=== PATIENT | male | born 1935 | race Two or more races ===

== ENCOUNTER 2024-06-01 20:10 | Inpatient (IN) | payer MEDICARE, OTHER ==
[~2024-06-01] VITALS: Ht 167.6 cm; Wt 57.4 kg
[2024-06-01] MEDS ORDERED: ACETAMINOPHEN 325 MG TABLET PO PRN (21:30)
[2024-06-01] MEDS ORDERED: TEMAZEPAM 7.5 MG CAPSULE PO PRN (21:30)
[2024-06-01] MEDS ORDERED: HYDROCODONE/APAP 5-325MG TABLET PO PRN (21:30)
[2024-06-01 21:53] VITALS: BP 150/52; TEMP 97.5; O2SAT 96
[2024-06-01] MEDS ORDERED: SIMV-46 PO (22:05)
[2024-06-01] MEDS ORDERED: BENZ150C4 PO (22:05)
[2024-06-01] MEDS ORDERED: HYDR-894 PO (22:05)
[2024-06-01] MEDS ORDERED: GABA300C PO (22:05)
[2024-06-01] MEDS ORDERED: TAMS-3 PO (22:05)
[2024-06-01] MEDS ORDERED: SITA100T PO (22:05)
[2024-06-01] MEDS ORDERED: ASPI81TA31 PO (22:41)
[2024-06-01] MEDS ORDERED: ACET100V4 NEB (22:41)
[2024-06-01] MEDS ORDERED: ACET325C7 PO (22:41)
[2024-06-01] MEDS ORDERED: ATOR10TA PO (22:41)
[2024-06-01] MEDS ORDERED: CEFT1FRO2 IV (22:41)
[2024-06-01] MEDS ORDERED: INSU100V28 SQ (23:38)
[2024-06-01] MEDS ORDERED: [UNRECOGNIZED DRUG - CODE] SQ (23:38)
[2024-06-01] MEDS ORDERED: METO50TA16 PO (23:38)
[2024-06-01] MEDS ORDERED: HYDR-4077 PO (23:38)
[2024-06-01] MEDS ORDERED: HYDR-4209 PO (23:38)
[2024-06-01] MEDS ORDERED: PRED20TA PO (23:38)
[2024-06-01] MEDS ORDERED: BENZ1LOZ58 MM ×2 (23:38)
[2024-06-01] MEDS ORDERED: PANT40TA49 PO (23:38)
[2024-06-02] MEDS ORDERED: Medication Not On Formulary EA (Acetaminophen (Tylenol) 2 CAP) PO PRN (00:30)
[2024-06-02 06:00] VITALS: BP 171/68; TEMP 97.8; O2SAT 97
[2024-06-02] MEDS: TAMSULOSIN HCL 0.4 MG CAP.SR.24H PO SCH ×2 (08:42→22:02)
[2024-06-02] MEDS: GABAPENTIN 300 MG CAPSULE PO SCH ×2 (08:42→22:58)
[2024-06-02] MEDS: predniSONE 20 MG TABLET PO SCH (08:42)
[2024-06-02] MEDS: BENZONATATE 100 MG CAPSULE PO SCH (08:42)
[2024-06-02] MEDS: PANTOPRAZOLE SODIUM 40 MG TABLET.DR PO SCH (08:42)
[2024-06-02] MEDS: METOPROLOL TARTRATE 50 MG TABLET PO SCH ×2 (08:49→21:00)
[2024-06-02] MEDS ORDERED: METOPROLOL TARTRATE 50 MG TABLET PO SCH (09:00)
[2024-06-02] MEDS ORDERED: hydrALAZINE HCL 25 MG TABLET PO SCH (09:00)
[2024-06-02] MEDS ORDERED: hydrALAZINE HCL 50 MG TABLET PO SCH (09:00)
[2024-06-02] MEDS: LINAGLIPTIN 5 MG TABLET PO SCH (14:09)
[2024-06-02] MEDS: BLOOD SUGAR DIAGNOSTIC 1 EACH STRIP VI SCH (14:10)
[2024-06-02] MEDS: INSULIN REGULAR, HUMAN 1000 UNIT/10 ML VIAL SQ PRN (14:23)
[2024-06-02] MEDS: hydrALAZINE HCL 50 MG TABLET PO SCH (14:32)
[2024-06-02] MEDS ORDERED: BENZONATATE 100 MG CAPSULE PO PRN (16:45)
[2024-06-02] MEDS ORDERED: BENZ-13 PO (16:49)
[2024-06-02] MEDS ORDERED: ATOR20TA PO (16:49)
[2024-06-02] MEDS ORDERED: SIMVASTATIN 20 MG TABLET PO SCH (18:00)
[2024-06-02] MEDS ORDERED: ATORVASTATIN 10 MG TABLET PO SCH (18:00)
[2024-06-02 18:23] VITALS: BP 162/62; TEMP 98.1; O2SAT 98
[2024-06-02 20:00] VITALS: BP 102/54; TEMP 97.9; O2SAT 97
[2024-06-02] MEDS ORDERED: ATORVASTATIN 20 MG TABLET PO SCH (21:00)
[2024-06-02] MEDS: DOXYCYCLINE HYCLATE 100 MG TABLET PO SCH (22:01)
[2024-06-02] MEDS: ATORVASTATIN 10 MG TABLET PO SCH (22:02)
[2024-06-02] MEDS ORDERED: GABAPENTIN 300 MG CAPSULE ONE (22:46)
[2024-06-02] MEDS ORDERED: HEPARIN SODIUM,PORCINE 5,000 UNITS/ML VIAL ONE (22:47)
[2024-06-02] MEDS ORDERED: methylPREDNISolone 4 MG TABLET ONE (22:47)
[2024-06-02] MEDS: HEPARIN SODIUM,PORCINE 5,000 UNITS/ML VIAL SQ SCH (23:01)
[2024-06-02] MEDS: ACETYLCYSTEINE 10% 4ML VIAL IH SCH (23:30)
[2024-06-03 06:00] VITALS: BP 151/64; TEMP 98.1; O2SAT 97
[2024-06-03 08:01] LABS: BASOPHILS % (AUTO) 0.1 % (0.0-2.0); EOSINOPHILS % (AUTO) 0.2 % (0.0-7.0); HEMATOCRIT 22.3 % (36.7-47.1); HEMOGLOBIN 7.6 g/dL (12.5-16.3); LYMPHOCYTES # (AUTO) 0.7 K/uL (0.8-4.8); LYMPHOCYTES % (AUTO) 9.5 % (20.5-51.5); MEAN CORPUSCULAR HEMOGLOBIN 28.9 uug (23.8-33.4); MEAN CORPUSCULAR HGB CONC 34 g/dL (32.5-36.3); MEAN CORPUSCULAR VOLUME 84.5 fL (73.0-96.2); MONOCYTES # (AUTO) 0.9 K/uL (0.1-1.30); MONOCYTES % (AUTO) 12.2 % (0.0-11.0); NEUTROPHILS # (AUTO) 5.9 K/uL (1.8-8.9); PLATELET COUNT (AUTO) 148 K/uL (152-348); RED BLOOD CELL COUNT(AUTO) 2.64 MIL/uL (4.06-5.63); RED CELL DISTRIBUTION WIDTH 13.7 % (12.1-16.2); WHITE BLOOD COUNT (AUTO) 7.6 K/uL (3.6-10.2)
[2024-06-03 08:09] LABS: DIFFERENTIAL COMMENT 1
[2024-06-03 08:15] LABS: ALANINE AMINOTRANSFERASE 16 U/L (16-63); ALBUMIN 2.2 g/dL (3.4-5.0); ALKALINE PHOSPHATASE 66 U/L (50-136); ASPARTATE AMINOTRANSFERASE < 5 U/L (15-37); BILIRUBIN,TOTAL 0.3 mg/dL (0.2-1.0); CALCIUM 7.8 mg/dL (8.5-10.1); CARBON DIOXIDE 26 mmol/L (21-32); CHLORIDE 106 mmol/L (98-107); CHOLESTEROL 137 mg/dL (<200); CREATININE 2.5 mg/dL (0.6-1.3); GLUCOSE 127 mg/dL (74-106); HDL CHOLESTEROL 57 mg/dL (40-60); MAGNESIUM 2.2 mg/dL (1.8-2.4); PHOSPHOROUS 4.6 mg/dL (2.5-4.9); POTASSIUM 4.2 mmol/L (3.5-5.1); SODIUM SERUM 138 mmol/L (136-145); TOTAL PROTEIN, SERUM 5.4 g/dL (6.4-8.2); TRIGLYCERIDES 52 MG/DL (30-150)
[2024-06-03] MEDS: predniSONE 10 MG TABLET PO SCH (08:45)
[2024-06-03] MEDS: ASPIRIN EC 81 MG TABLET.DR PO SCH (08:45)
[2024-06-03 09:16] LABS: THYROID STIMULATING HORMONE 1.087 mIU/mL (0.358-3.740)
[2024-06-03 09:37] LABS: UREA NITROGEN, BLOOD 92 mg/dL (7-18)
[2024-06-03] MEDS ORDERED: ALBUTEROL SULFATE 8 GM HFA.AER.AD IH PRN (10:00)
[2024-06-03 12:36] LABS: BAND % (MANUAL) 3 % (0-10); LYMPHOCYTES % (MANUAL) 4 % (20-40); METAMYELOCYTES % 1 % (0-1); MONOCYTES % (MANUAL) 7 % (2-10); MYELOCYTES % 1 % (0-0); NEUTROPHILS % (MANUAL) 84 % (42-75); PLATELET ESTIMATE DECREASED
[2024-06-03] MEDS ORDERED: ALBUTEROL SULFATE 2.5 MG/3 ML NEBU NEB PRN (14:00)
[2024-06-03 16:15] VITALS: BP 127/51; TEMP 97.6; O2SAT 95
[2024-06-03 23:19] VITALS: BP 141/52; TEMP 97.4; O2SAT 96
[2024-06-04 07:16] VITALS: BP 138/49; TEMP 99; O2SAT 95
[2024-06-04 16:15] VITALS: BP 142/60; TEMP 97.6; O2SAT 96
[2024-06-04] MEDS: DOXYCYCLINE HYCLATE 100 MG TABLET PO SCH (20:42)
[2024-06-04] MEDS: INSULIN REGULAR, HUMAN 300 UNITS/3 ML VIAL SQ PRN (20:54)
[2024-06-04 21:08] VITALS: BP 147/48; TEMP 97.6; O2SAT 95
[2024-06-05 06:57] VITALS: BP 151/42; TEMP 98.1; O2SAT 96
[2024-06-05 15:45] VITALS: BP 137/56; TEMP 99.2; O2SAT 93
[2024-06-05 19:23] VITALS: BP 136/46; TEMP 98.1; O2SAT 97
[2024-06-06 06:20] VITALS: BP 163/59; TEMP 97.9; O2SAT 96
[2024-06-06 08:12] LABS: BASOPHILS % (AUTO) 0.1 % (0.0-2.0); EOSINOPHILS # (AUTO) 0.1 K/uL (0.0-0.7); EOSINOPHILS % (AUTO) 1.2 % (0.0-7.0); HEMATOCRIT 22.6 % (36.7-47.1); HEMOGLOBIN 7.7 g/dL (12.5-16.3); LYMPHOCYTES % (AUTO) 13.1 % (20.5-51.5); MEAN CORPUSCULAR HEMOGLOBIN 29.2 uug (23.8-33.4); MEAN CORPUSCULAR HGB CONC 34 g/dL (32.5-36.3); MEAN CORPUSCULAR VOLUME 85.1 fL (73.0-96.2); MONOCYTES # (AUTO) 0.6 K/uL (0.1-1.30); MONOCYTES % (AUTO) 8.5 % (0.0-11.0); NEUTROPHILS # (AUTO) 5.8 K/uL (1.8-8.9); NEUTROPHILS % (AUTO) 77.1 % (38.5-71.5); PLATELET COUNT (AUTO) 156 K/uL (152-348); RED BLOOD CELL COUNT(AUTO) 2.65 MIL/uL (4.06-5.63); RED CELL DISTRIBUTION WIDTH 13.8 % (12.1-16.2); WHITE BLOOD COUNT (AUTO) 7.5 K/uL (3.6-10.2)
[2024-06-06 08:14] LABS: DIFFERENTIAL COMMENT 1
[2024-06-06 08:55] LABS: IRON, SERUM 86 ug/dL (50-175)
[2024-06-06 09:00] LABS: ALANINE AMINOTRANSFERASE 15 U/L (16-63); ALBUMIN 2.4 g/dL (3.4-5.0); ALKALINE PHOSPHATASE 71 U/L (50-136); ASPARTATE AMINOTRANSFERASE 6 U/L (15-37); BILIRUBIN,TOTAL 0.4 mg/dL (0.2-1.0); CALCIUM 8.1 mg/dL (8.5-10.1); CARBON DIOXIDE 25 mmol/L (21-32); CHLORIDE 107 mmol/L (98-107); CREATININE 2.3 mg/dL (0.6-1.3); GLUCOSE 208 mg/dL (74-106); MAGNESIUM 1.8 mg/dL (1.8-2.4); PHOSPHOROUS 3.7 mg/dL (2.5-4.9); POTASSIUM 4.4 mmol/L (3.5-5.1); SODIUM SERUM 140 mmol/L (136-145); TOTAL PROTEIN, SERUM 5.6 g/dL (6.4-8.2); UREA NITROGEN, BLOOD 80 mg/dL (7-18)
[2024-06-06 15:37] VITALS: BP 100/45; TEMP 98.4; O2SAT 94
[2024-06-06 19:34] VITALS: BP 146/47; TEMP 98; O2SAT 97
[2024-06-07 06:30] VITALS: BP 128/58; TEMP 98.5; O2SAT 95
[2024-06-07 14:27] VITALS: BP 145/49; TEMP 98.1; O2SAT 100
[2024-06-07 20:00] VITALS: BP 122/44; TEMP 98.2; O2SAT 96
[2024-06-08 07:07] VITALS: BP 138/44; TEMP 98; O2SAT 95
[2024-06-08 16:00] VITALS: BP 128/48; TEMP 97.6; O2SAT 98
[2024-06-08] MEDS: GLUCAGON,HUMAN RECOMBINANT 1 MG VIAL IM ONE (16:15)
[2024-06-08 22:38] VITALS: BP 129/50; TEMP 98.1; O2SAT 98
[2024-06-09 06:00] VITALS: BP 131/53; TEMP 98.1; O2SAT 99
[2024-06-09 16:12] VITALS: BP 132/48; TEMP 97.8; O2SAT 96
[2024-06-09 19:40] VITALS: BP 144/47; TEMP 98.1; O2SAT 99
[2024-06-10 07:02] VITALS: BP 102/42; TEMP 99; O2SAT 97
[2024-06-10 15:54] VITALS: BP 138/48; TEMP 98.3; O2SAT 96
[2024-06-10 20:36] VITALS: BP 129/41; TEMP 98.2; O2SAT 96
[2024-06-11] VITALS (9 sets, daily range): BP systolic 106–167; BP diastolic 36–64; TEMP 97.7–98.1; O2SAT 94–97
[2024-06-11 07:19] LABS: BASOPHILS % (AUTO) 0.5 % (0.0-2.0); DIFFERENTIAL COMMENT 0; EOSINOPHILS # (AUTO) 0.1 K/uL (0.0-0.7); EOSINOPHILS % (AUTO) 1.7 % (0.0-7.0); LYMPHOCYTES # (AUTO) 0.7 K/uL (0.8-4.8); LYMPHOCYTES % (AUTO) 13.2 % (20.5-51.5); MEAN CORPUSCULAR HEMOGLOBIN 28.7 uug (23.8-33.4); MEAN CORPUSCULAR HGB CONC 33 g/dL (32.5-36.3); MEAN CORPUSCULAR VOLUME 86.5 fL (73.0-96.2); MONOCYTES # (AUTO) 0.6 K/uL (0.1-1.30); MONOCYTES % (AUTO) 11.8 % (0.0-11.0); NEUTROPHILS # (AUTO) 3.9 K/uL (1.8-8.9); NEUTROPHILS % (AUTO) 72.8 % (38.5-71.5); PLATELET COUNT (AUTO) 147 K/uL (152-348); RED CELL DISTRIBUTION WIDTH 14.3 % (12.1-16.2); WHITE BLOOD COUNT (AUTO) 5.4 K/uL (3.6-10.2)
[2024-06-11 07:45] LABS: HEMATOCRIT 19.9 % (36.7-47.1); HEMOGLOBIN 6.6 g/dL (12.5-16.3)
[2024-06-11 07:53] LABS: ALANINE AMINOTRANSFERASE 11 U/L (16-63); ALBUMIN 2.1 g/dL (3.4-5.0); ALKALINE PHOSPHATASE 60 U/L (50-136); BILIRUBIN,TOTAL 0.3 mg/dL (0.2-1.0); CALCIUM 7.7 mg/dL (8.5-10.1); CARBON DIOXIDE 23 mmol/L (21-32); CHLORIDE 111 mmol/L (98-107); CREATININE 2.1 mg/dL (0.6-1.3); GLUCOSE 146 mg/dL (74-106); MAGNESIUM 1.8 mg/dL (1.8-2.4); PHOSPHOROUS 3.6 mg/dL (2.5-4.9); POTASSIUM 4.9 mmol/L (3.5-5.1); SODIUM SERUM 140 mmol/L (136-145); TOTAL PROTEIN, SERUM 5.2 g/dL (6.4-8.2); UREA NITROGEN, BLOOD 64 mg/dL (7-18)
[2024-06-11 08:01] LABS: ASPARTATE AMINOTRANSFERASE < 5 U/L (15-37)
[2024-06-11 13:35] LABS: BAND % (MANUAL) 4 % (0-10); BASOPHILS % (MANUAL) 1 % (0-2); EOSINOPHILS % (MANUAL) 3 % (0-8); LYMPHOCYTES % (MANUAL) 14 % (20-40); MONOCYTES % (MANUAL) 11 % (2-10); NEUTROPHILS % (MANUAL) 65 % (42-75); REACTIVE LYMPHOCYTES 2 % (0-0)
[2024-06-11 13:36] LABS: ANISOCYTOSIS 1+; PLATELET ESTIMATE DECREASED
[2024-06-12 06:00] VITALS: BP 146/52; TEMP 98.1; O2SAT 97
[2024-06-12 15:10] VITALS: BP 120/58; TEMP 97.4; O2SAT 96
[2024-06-12] MEDS: DEXTROSE 50% 50 ML DISP.SYRIN IV PRN (17:23)
[2024-06-12 19:53] VITALS: BP 119/46; TEMP 97.8; O2SAT 93
[2024-06-13 06:14] VITALS: BP 103/53; TEMP 98.2; O2SAT 91
[2024-06-13 06:30] LABS: BASOPHILS % (AUTO) 0.8 % (0.0-2.0); EOSINOPHILS # (AUTO) 0.1 K/uL (0.0-0.7); EOSINOPHILS % (AUTO) 2.4 % (0.0-7.0); HEMATOCRIT 22.9 % (36.7-47.1); HEMOGLOBIN 7.8 g/dL (12.5-16.3); LYMPHOCYTES # (AUTO) 0.8 K/uL (0.8-4.8); LYMPHOCYTES % (AUTO) 14.5 % (20.5-51.5); MEAN CORPUSCULAR HGB CONC 34 g/dL (32.5-36.3); MEAN CORPUSCULAR VOLUME 84.9 fL (73.0-96.2); MONOCYTES # (AUTO) 0.7 K/uL (0.1-1.30); NEUTROPHILS % (AUTO) 70.3 % (38.5-71.5); PLATELET COUNT (AUTO) 123 K/uL (152-348); RED BLOOD CELL COUNT(AUTO) 2.69 MIL/uL (4.06-5.63); RED CELL DISTRIBUTION WIDTH 14.5 % (12.1-16.2); WHITE BLOOD COUNT (AUTO) 5.7 K/uL (3.6-10.2)
[2024-06-13 06:44] LABS: DIFFERENTIAL COMMENT 1
[2024-06-13 06:48] LABS: ALBUMIN 2.1 g/dL (3.4-5.0); ALKALINE PHOSPHATASE 61 U/L (50-136); ASPARTATE AMINOTRANSFERASE 6 U/L (15-37); BILIRUBIN,TOTAL 0.3 mg/dL (0.2-1.0); CALCIUM 7.7 mg/dL (8.5-10.1); CARBON DIOXIDE 24 mmol/L (21-32); CHLORIDE 108 mmol/L (98-107); CREATININE 1.9 mg/dL (0.6-1.3); GLUCOSE 93 mg/dL (74-106); POTASSIUM 4.1 mmol/L (3.5-5.1); SODIUM SERUM 140 mmol/L (136-145); TOTAL PROTEIN, SERUM 5.3 g/dL (6.4-8.2); UREA NITROGEN, BLOOD 45 mg/dL (7-18)
[2024-06-13 06:57] LABS: ALANINE AMINOTRANSFERASE < 6 U/L (16-63)
[2024-06-13 15:26] VITALS: BP 151/56; TEMP 98; O2SAT 98
[2024-06-13 21:50] VITALS: BP 130/40; TEMP 98; O2SAT 95
[2024-06-14 06:11] VITALS: BP 133/48; TEMP 99.2
[2024-06-14 14:10] VITALS: BP 139/53
== END 2024-06-14 14:00 | disposition home health service (06) | DRG 193 ==
PROVIDERS: ADMIT Physical Medicine & Rehabilitation Pain Medicine; ATTEND Physical Medicine & Rehabilitation Pain Medicine
PROC: 30233N1 Transfusion of Nonautologous Red Blood Cells into Peripheral Vein, Percutaneous Approach (ICD-10-PCS; principal; 2024-06-11)
DX: J18.9 Pneumonia, unspecified organism (principal); E43 Unspecified severe protein-calorie malnutrition; I21.A1 Myocardial infarction type 2; J96.01 Acute respiratory failure with hypoxia; N17.0 Acute kidney failure with tubular necrosis; I50.33 Acute on chronic diastolic (congestive) heart failure; I13.0 Hypertensive heart and chronic kidney disease with heart failure and stage 1 through stage 4 chronic kidney disease, or unspecified chronic kidney disease; E87.20 Acidosis, unspecified; N39.0 Urinary tract infection, site not specified; M89.8X9 Other specified disorders of bone, unspecified site; N18.9 Chronic kidney disease, unspecified; Z89.411 Acquired absence of right great toe; D50.9 Iron deficiency anemia, unspecified; E11.22 Type 2 diabetes mellitus with diabetic chronic kidney disease; E11.65 Type 2 diabetes mellitus with hyperglycemia; I25.10 Atherosclerotic heart disease of native coronary artery without angina pectoris; I27.20 Pulmonary hypertension, unspecified; R19.5 Other fecal abnormalities
CPT/HCPCS: 36415; 70030-TC; 82378; 83550; 83735; 84100; 84443; 85025; 86850; 86900; 86901; 86920; J1610; J1644; J1815; J3490; J7040; J7509; J7512; P9016